=== PATIENT | female | born 1940 | race African-American/Black ===

== ENCOUNTER 2017-03-22 00:58 | Inpatient (IN) | payer MEDICARE, MEDICAID ==
[~2017-03-22] VITALS: Ht 170.2 cm; Wt 66.2 kg
[~2017-03-22 00:58] MED LIST: AMLO5TAB88 PO; ASPI-1159 PO; CLOP75TA16 PO; HYDR-4135 PO; ISOS30TA6 PO; LIP40 PO; METO25TA6 PO
[2017-03-22] MEDS ORDERED: ONDANSETRON HCL 4MG/2ML VIAL IV STA (01:49)
[2017-03-22 02:12] LABS: BASOPHILS % 1.1 % (0.0-2.0); EOSINOPHILS % 4.7 % (0.0-5.0); MEAN CORPUSCULAR HEMOGLOBIN 27.2 pg (28.0-32.0); MEAN CORPUSCULAR VOLUME 83.6 fL (81.0-99.0); MEAN PLATELET VOLUME 11.3 fl (7.4-10.4); MONOCYTES % 9.5 % (2.0-8.0); NEUTROPHILS % 29.7 % (40.0-76.0); PLATELET 171 x1000/uL (130-400); RED BLOOD CELL COUNT 4.79 mill/uL (4.2-5.4); RED CELL DISTRIBUTION WIDTH 15.4 % (11.6-14.6)
[2017-03-22 02:29] LABS: CARBON DIOXIDE 23 mEq/L (21-32); CHLORIDE 105 mEq/L (98-107); TROPONIN I < 0.02 ng/mL (0.00-0.04)
[2017-03-22] MEDS ORDERED: SODIUM CHLORIDE 0.9% 1,000 ML IV SCH (03:39)
[2017-03-22] MEDS ORDERED: SODIUM CHLORIDE 0.9% 1,000 ML IV ONE (03:39)
[2017-03-22 06:30] VITALS: BP 189/71
[2017-03-22 08:00] VITALS: BP 177/76
[2017-03-22] MEDS ORDERED: MAGNESIUM/ALUMINUM HYDROXIDE/SIMETHICONE 30ML UDC PO PRN (08:00)
[2017-03-22] MEDS ORDERED: GUAIFENESIN 200MG/10ML SUGAR FREE UDC PO PRN (08:00)
[2017-03-22] MEDS ORDERED: DIPHENHYDRAMINE 50MG/ML VIAL IV PRN (08:00)
[2017-03-22] MEDS ORDERED: ACETAMINOPHEN 325MG TABLET PO PRN (08:00)
[2017-03-22] MEDS ORDERED: ONDANSETRON HCL 4MG/2ML VIAL IV PRN (08:00)
[2017-03-22] MEDS ORDERED: TRAMADOL 50MG TABLET PO PRN (08:00)
[2017-03-22] MEDS ORDERED: LORAZEPAM 2MG/ML CPJ IV PRN (08:00)
[2017-03-22] MEDS ORDERED: IPRATROPIUM/ALBUTEROL 0.5-3(2.5)MG/3ML NEB INH PRN (08:00)
[2017-03-22] MEDS ORDERED: NA PHOS,M-B/NA PHOS,DI-BA ENEMA 118ML PR PRN (08:00)
[2017-03-22] MEDS: ENOXAPARIN 40MG/0.4ML SYR SUBCUT SCH (09:11)
[2017-03-22] MEDS: METOPROLOL TARTRATE 25MG TABLET PO SCH ×2 (09:11→20:39)
[2017-03-22] MEDS: LISINOPRIL 20MG TABLET PO SCH ×2 (09:11→20:39)
[2017-03-22] MEDS: AMLODIPINE 10MG TABLET PO SCH (09:12)
[2017-03-22] MEDS: ASCORBIC ACID 500 MG TABLET PO SCH ×2 (09:12→20:38)
[2017-03-22] MEDS: PANTOPRAZOLE SODIUM 40 MG/VIAL IV SCH (09:13)
[2017-03-22] MEDS ORDERED: LEVOFLOXACIN 500MG PREMIX 100 ML IV NR (10:00)
[2017-03-22 12:00] VITALS: BP 117/48
[2017-03-22] MEDS: SUCRALFATE 1 G/10 ML UDC PO SCH ×3 (12:11→20:39)
[2017-03-22] MEDS: NYSTATIN POWDER 15GM TOP SCH ×2 (13:36→20:39)
[2017-03-22] MEDS: HYDRALAZINE HCL 50MG TABLET PO SCH ×2 (13:36→21:46)
[2017-03-22 15:57] LABS: CLARITY URINE CLOUDY (CLEAR); COLOR URINE YELLOW (YELLOW); GLUCOSE URINE NEGATIVE (NEGATIVE); KETONES URINE NEGATIVE (NEGATIVE); LEUKOCYTE ESTERASE URINE 2+ (NEGATIVE); NITRITE URINE POSITIVE (NEGATIVE); OCCULT BLOOD URINE NEGATIVE (NEGATIVE); PROTEIN URINE NEGATIVE (NEGATIVE); SPECIFIC GRAVITY URINE 1.015 (1.005-1.030); UROBILINOGEN URINE 0.2 E.U./dL (0.2-1.0)
[2017-03-22 16:00] VITALS: BP 140/57
[2017-03-22 16:13] LABS: CREATINE KINASE MB FRACTION 2.2 ng/mL (0.5-3.6); TROPONIN I 0.07 ng/mL (0.00-0.04)
[2017-03-22 16:17] LABS: *AMPHETAMINES SCREEN URINE NEGATIVE (NEGATIVE); *BARBITURATES SCREEN URINE NEGATIVE (NEGATIVE); *BENZODIAZEPINES SCREEN URINE NEGATIVE (NEGATIVE); *COCAINE SCREEN URINE NEGATIVE (NEGATIVE); CANNABINOID URINE SCREEN PRESUMTIVE POSITIVE (NEGATIVE); METHADONE URINE SCREEN NEGATIVE (NEGATIVE); OPIATES URINE SCREEN NEGATIVE (NEGATIVE); PHENCYCLIDINE URINE SCREEN NEGATIVE (NEGATIVE)
[2017-03-22 20:00] VITALS: BP 151/62
[2017-03-22] MEDS: ATORVASTATIN CALCIUM 40MG TABLET PO SCH (20:38)
[2017-03-22] MEDS: ZOLPIDEM TARTRATE 5MG TABLET PO PRN (21:45)
[2017-03-22 23:05] LABS: CREATINE KINASE MB FRACTION 1.7 ng/mL (0.5-3.6); TROPONIN I 0.03 ng/mL (0.00-0.04)
[2017-03-23] VITALS: BP 151/59
[2017-03-23 04:00] VITALS: BP 159/66
[2017-03-23] MEDS: SUCRALFATE 1 G/10 ML UDC PO SCH ×4 (06:29→21:26)
[2017-03-23] MEDS: HYDRALAZINE HCL 50MG TABLET PO SCH ×3 (06:29→21:28)
[2017-03-23 08:00] VITALS: BP 186/66
[2017-03-23] MEDS: CLOPIDOGREL 75MG TABLET PO SCH (08:32)
[2017-03-23] MEDS: AMLODIPINE 10MG TABLET PO SCH (08:33)
[2017-03-23] MEDS: LISINOPRIL 20MG TABLET PO SCH ×2 (08:33→21:27)
[2017-03-23] MEDS: ENOXAPARIN 40MG/0.4ML SYR SUBCUT SCH (08:34)
[2017-03-23] MEDS: NYSTATIN POWDER 15GM TOP SCH ×2 (08:34→21:28)
[2017-03-23] MEDS: ASPIRIN 325MG EC TABLET PO SCH (08:34)
[2017-03-23] MEDS: PANTOPRAZOLE SODIUM 40 MG/VIAL IV SCH (08:34)
[2017-03-23] MEDS: ASCORBIC ACID 500 MG TABLET PO SCH ×2 (08:34→21:28)
[2017-03-23] MEDS: METOPROLOL TARTRATE 25MG TABLET PO SCH ×2 (08:35→21:00)
[2017-03-23] MEDS: LEVOFLOXACIN 250MG PREMIX 50 ML IV SCH (10:22)
[2017-03-23 12:00] VITALS: BP 116/58
[2017-03-23 20:00] VITALS: BP 166/58
[2017-03-23] MEDS: ATORVASTATIN CALCIUM 40MG TABLET PO SCH (21:27)
[2017-03-24] VITALS (7 sets, daily range): BP systolic 122–185; BP diastolic 58–81
[2017-03-24] MEDS: DOCUSATE SODIUM 100MG CAPSULE PO PRN ×2 (06:07→20:54)
[2017-03-24] MEDS: SUCRALFATE 1 G/10 ML UDC PO SCH ×4 (06:07→20:52)
[2017-03-24] MEDS: HYDRALAZINE HCL 50MG TABLET PO SCH ×3 (06:07→22:00)
[2017-03-24] MEDS: AMLODIPINE 10MG TABLET PO SCH (08:48)
[2017-03-24] MEDS: FAMOTIDINE 20MG/2ML VIAL IV SCH ×2 (08:48→20:51)
[2017-03-24] MEDS: ASPIRIN 325MG EC TABLET PO SCH (08:48)
[2017-03-24] MEDS: ASCORBIC ACID 500 MG TABLET PO SCH ×2 (08:48→20:53)
[2017-03-24] MEDS: CLOPIDOGREL 75MG TABLET PO SCH (08:48)
[2017-03-24] MEDS: LISINOPRIL 20MG TABLET PO SCH ×2 (08:48→20:54)
[2017-03-24] MEDS: NYSTATIN POWDER 15GM TOP SCH (08:49)
[2017-03-24] MEDS: METOPROLOL TARTRATE 25MG TABLET PO SCH ×2 (08:49→20:53)
[2017-03-24] MEDS: ENOXAPARIN 40MG/0.4ML SYR SUBCUT SCH (08:49)
[2017-03-24] MEDS: LEVOFLOXACIN 250MG PREMIX 50 ML IV SCH (11:10)
[2017-03-24] MEDS: CLONIDINE 0.1MG TABLET PO PRN (11:46)
[2017-03-24] MEDS: ATORVASTATIN CALCIUM 40MG TABLET PO SCH (20:52)
[2017-03-25] MEDS: ZOLPIDEM TARTRATE 5MG TABLET PO PRN (00:04)
[2017-03-25 00:16] VITALS: BP 124/61
[2017-03-25 04:00] VITALS: BP 153/64
[2017-03-25] MEDS: NYSTATIN POWDER 15GM TOP SCH ×2 (05:06→09:36)
[2017-03-25] MEDS: SUCRALFATE 1 G/10 ML UDC PO SCH ×4 (06:04→21:24)
[2017-03-25] MEDS: HYDRALAZINE HCL 50MG TABLET PO SCH ×3 (06:04→22:00)
[2017-03-25 08:00] VITALS: BP 145/66
[2017-03-25] MEDS: METOPROLOL TARTRATE 25MG TABLET PO SCH ×2 (09:00→21:00)
[2017-03-25] MEDS: LISINOPRIL 20MG TABLET PO SCH ×2 (09:35→21:25)
[2017-03-25] MEDS: DOCUSATE SODIUM 100MG CAPSULE PO PRN (09:35)
[2017-03-25] MEDS: ASCORBIC ACID 500 MG TABLET PO SCH ×2 (09:35→21:25)
[2017-03-25] MEDS: ASPIRIN 325MG EC TABLET PO SCH (09:35)
[2017-03-25] MEDS: CLOPIDOGREL 75MG TABLET PO SCH (09:36)
[2017-03-25] MEDS: FAMOTIDINE 20MG/2ML VIAL IV SCH ×2 (09:36→21:31)
[2017-03-25] MEDS: ENOXAPARIN 40MG/0.4ML SYR SUBCUT SCH (09:36)
[2017-03-25] MEDS: AMLODIPINE 10MG TABLET PO SCH (09:36)
[2017-03-25] MEDS: LEVOFLOXACIN 250MG PREMIX 50 ML IV SCH (10:41)
[2017-03-25 12:00] VITALS: BP 146/66
[2017-03-25 16:00] VITALS: BP 159/67
[2017-03-25] MEDS: CLONIDINE 0.1MG TABLET PO PRN (16:00)
[2017-03-25 20:00] VITALS: BP 120/51
[2017-03-25] MEDS: ATORVASTATIN CALCIUM 40MG TABLET PO SCH (21:24)
[2017-03-26] VITALS: BP 98/53
[2017-03-26] MEDS: DOCUSATE SODIUM 100MG CAPSULE PO PRN (01:07)
[2017-03-26] MEDS: ZOLPIDEM TARTRATE 5MG TABLET PO PRN (01:07)
[2017-03-26 04:00] VITALS: BP 160/67
[2017-03-26] MEDS: NYSTATIN POWDER 15GM TOP SCH ×2 (05:54→09:17)
[2017-03-26] MEDS: SUCRALFATE 1 G/10 ML UDC PO SCH ×2 (05:55→10:54)
[2017-03-26] MEDS: HYDRALAZINE HCL 50MG TABLET PO SCH (05:55)
[2017-03-26 06:11] LABS: HEMATOCRIT 36.1 % (36.0-48.0); HEMOGLOBIN 11.9 g/dL (12.0-16.0); MEAN CORPUSCULAR HEMOGLOBIN 27.2 pg (28.0-32.0); MEAN CORPUSCULAR VOLUME 82.7 fL (81.0-99.0); PLATELET 129 x1000/uL (130-400); RED BLOOD CELL COUNT 4.36 mill/uL (4.2-5.4); RED CELL DISTRIBUTION WIDTH 15.3 % (11.6-14.6)
[2017-03-26 08:00] VITALS: BP 187/67
[2017-03-26] MEDS: ASPIRIN 325MG EC TABLET PO SCH (09:13)
[2017-03-26] MEDS: AMLODIPINE 10MG TABLET PO SCH (09:14)
[2017-03-26] MEDS: ASCORBIC ACID 500 MG TABLET PO SCH (09:14)
[2017-03-26] MEDS: METOPROLOL TARTRATE 25MG TABLET PO SCH (09:15)
[2017-03-26] MEDS: CLOPIDOGREL 75MG TABLET PO SCH (09:16)
[2017-03-26] MEDS: FAMOTIDINE 20MG/2ML VIAL IV SCH (09:16)
[2017-03-26] MEDS: ENOXAPARIN 40MG/0.4ML SYR SUBCUT SCH (09:16)
[2017-03-26] MEDS: LISINOPRIL 20MG TABLET PO SCH (09:17)
[2017-03-26] MEDS ORDERED: LEVOFLOXACIN 250MG TABLET PO SCH (10:00)
[2017-03-26 11:40] VITALS: BP 157/67
[2017-03-26] MEDS: CLONIDINE 0.1MG TABLET PO PRN (12:03)
[2017-03-26] MEDS ORDERED: CEFAZOLIN 2,000 MG in DEXT 5% WATER 100 ML IV SCH (13:30)
== END 2017-03-26 12:46 | disposition home health service (06) | DRG 872 ==
LOC: ER 00:58 → 5WST 03:43 → EDBEDREQ 03:47 → ENRESERV 04:24 → EDBEDREQ 05:58
PROVIDERS: ADMIT Internal Medicine; ATTEND Internal Medicine
DX: A41.9 Sepsis, unspecified organism (principal); N39.0 Urinary tract infection, site not specified; I10 Essential (primary) hypertension; E78.5 Hyperlipidemia, unspecified; R07.89 Other chest pain; K29.70 Gastritis, unspecified, without bleeding; B96.20 Unspecified Escherichia coli [E. coli] as the cause of diseases classified elsewhere; E78.00 Pure hypercholesterolemia, unspecified; Z79.899 Other long term (current) drug therapy; I25.2 Old myocardial infarction; Z79.82 Long term (current) use of aspirin
CPT/HCPCS: 36415; 70450; 71010; 74176; 80053; 80061; 80305; 81001; 82550; 82553; 83036; 83605; 84484; 85025; 85027; 87040; 87077; 87086; 87186; 93005; 93306; 96374; 97161; 97166; 99285; C1893; C9113; J0690; J1650; J1956; J2405; J3490; J7030; J7060

== ENCOUNTER 2018-10-30 14:49 | Emergency (ER) | payer OTHER, MEDICAID ==
[~2018-10-30] VITALS: Ht 157.5 cm; Wt 64.0 kg
[2018-10-30] MEDS ORDERED: LISI40TA4 PO (15:00)
[2018-10-30] MEDS ORDERED: ACETAMINOPHEN 325MG TABLET PO STA (15:08)
[2018-10-30] MEDS ORDERED: ASPIRIN 81MG TABLET PO ONE (15:15)
[2018-10-30] MEDS ORDERED: IPRATROPIUM BROMIDE (0.02%) 0.5MG/2.5ML NEB HHN STA (15:19)
[2018-10-30] MEDS ORDERED: SODIUM CHLORIDE 0.9% 1000ML BAG (SEPSIS BOLUS) IV ONE (15:30)
[2018-10-30] MEDS ORDERED: CEFTRIAXONE 1 G PREMIX 50 ML IV ONE (15:30)
[2018-10-30] MEDS ORDERED: AZITHROMYCIN 500 MG in DEXT 5% WATER 250 ML IV ONE (15:30)
[2018-10-30 15:55] LABS: BG BASE EXCESS 2.6 mmol/L (-2.0-2.0); BG CARBOXYHEMOGLOBIN 0.2 % (0.5-1.5); BG DEOXYHEMOGLOBIN 5.7 % (0.0-5.0); BG FRACTION INSPIRED OXYGEN 21; BG HCO3 ACT 25.8 mmol/L (22.0-26.0); BG METHEMOGLOBIN 0.5 % (0.0-1.5); BG OXYGEN SATURATION 94.3 % (92.0-98.5); BG OXYHEMOGLOBIN 93.6 % (94.0-97.0); BG PCO2 35.2 mmHg (35.0-45.0); BG PH 7.483 (7.350-7.450); BG PO2 66.4 mmHg (75.0-100.0); BG SAMPLE SITE LEFT RADIAL; BG TOTAL HEMOGLOBIN 13.6 g/dL (12.0-18.0); BG VENT MODE ROOM AIR
[2018-10-30] MEDS: ALBUTEROL (0.083%) 2.5MG/3ML NEB HHN SCH ×3 (15:55→16:30)
[2018-10-30 16:00] LABS: BASOPHILS % 0.5 % (0.0-2.0); EOSINOPHILS % 1.9 % (0.0-5.0); HEMOGLOBIN. 13.4 g/dL (12.0-16.0); LYMPHOCYTES % 34.8 % (20.0-50.0); MEAN CORPUSCULAR VOLUME 82.8 fL (81.0-99.0); MEAN PLATELET VOLUME 10.4 fl (7.4-10.4); MONOCYTES % 9.9 % (2.0-8.0); NEUTROPHILS % 52.9 % (40.0-76.0); PLATELET 159 x1000/uL (130-400); RED BLOOD CELL COUNT 4.95 mill/uL (4.2-5.4); RED CELL DISTRIBUTION WIDTH 15.3 % (11.6-14.6)
[2018-10-30 16:05] LABS: CHLORIDE 101 mEq/L (98-107)
[2018-10-30 16:06] LABS: PROTHROMBIN TIME 10.4 sec (9.6-11.0)
[2018-10-30] MEDS ORDERED: DEXAMETHASONE 10 MG/ML VIAL IV ONE (17:15)
[2018-10-30] MEDS ORDERED: CLONIDINE 0.1MG TABLET PO ONE (19:00)
[2018-10-30 20:00] VITALS: BP 169/75
== END 2018-10-30 20:00 | disposition home or self-care (01) ==
LOC: ER 14:49 → CANBEDREQ 23:00
DX: R05 Cough (principal); R07.89 Other chest pain; R06.2 Wheezing; E78.00 Pure hypercholesterolemia, unspecified; I10 Essential (primary) hypertension; I25.2 Old myocardial infarction; Z79.82 Long term (current) use of aspirin; Z79.899 Other long term (current) drug therapy
CPT/HCPCS: 36415; 36600; 71045; 80053; 82375; 82805; 83605; 83880; 84484; 85025; 85610; 87040; 93005; 94640; 96365; 96366; 96375; 99285; J0456; J0696; J1100; J7030; J7060; J7611